=== PATIENT | male | born 1980 | race Caucasian/White ===

== ENCOUNTER 2019-12-05 17:42 | Emergency (ER) | payer OTHER, SELFPAY ==
--- NOTE | ~2019-12-05 | XR_ITS ---
EXAMINATION: XR chest 2V 12/05/2019 19:50 INDICATION: Chest and left arm pain PROCEDURE: 2 view chest COMPARISON: 06/30/2015 FINDINGS: The lungs are clear. The cardiomediastinal silhouette is within normal limits. There are no pleural effusions. There is no pneumothorax suspected. IMPRESSION: 1: NO ACUTE CARDIOPULMONARY DISEASE. Reviewed, dictated and finalized at location A.
--- NOTE | 2019-12-05 18:06 | ECG_ITS ---
Measurements Intervals [place] Rate: 69 P: 22 IN: 140 QRS: 34 QRSD: 91 T: 43 QT: 349 QTc: 376 Interpretive Statements SINUS RHYTHM CANNOT RULE OUT SEPTAL INFARCT, AGE INDETERMINATE BASELINE WANDER- V1-V2 ABNORMAL ECG Electronically Signed On 12-05-2019 19:11:42 CDT by Mahendra Vang D.O.
[2019-12-05 18:08] VITALS: BP 176/113; PULSE 69; RESP 18; TEMP 36.3; O2SAT 99
[2019-12-05 18:16] LABS: Basophils Percent Auto 0.5 % (0.2-1.2); Eosinophils Absolute Auto 0.2 K/mm3 (0-0.3); Eosinophils Percent Auto 2.3 % (0-4.4); Hematocrit 44.8 % (42.0-52.0); Hemoglobin 16.2 g/dL (14.0-18.0); Immature Granulocyte Absolute 0.02 K/mm3 (0.00-0.031); Immature Granulocyte Percent A 0.2 % (0-0.5); Lymphocytes Absolute Auto 2.09 K/mm3 (0.9-3.2); Lymphocytes Percent Auto 25.1 % (18.3-44.2); Mean Corpuscular HGB Conc 36.2 g/dl (32-36); Mean Corpuscular Hemoglobin 31.3 pg (26-34); Mean Corpuscular Volume 86.7 fl (80-100); Mean Platelet Volume 8.8 fl (7.4-10.4); Monocytes Absolute Auto 0.6 K/mm3 (0.1-0.6); Monocytes Percent Auto 7.7 % (2.6-8.5); Neutrophils Absolute Auto 5.3 K/mm3 (1.3-6.7); Neutrophils Percent Auto 64.2 % (45.5-73.1); Platelet Count Result 207 k/mm3 (150-375); Red Blood Count 5.17 M/mm3 (4.6-6.20); Red Cell Distribution Width 11.5 % (11.5-14.5); White Blood Count 8.3 K/mm3 (4.5-10.0)
[2019-12-05 18:25] LABS: Prothrombin Time 13.2 Seconds (11.1-14.7)
[2019-12-05 18:26] LABS: Partial Thromboplastin Time 26.9 SECONDS (22.3-36.8)
[2019-12-05 18:27] LABS: Anion Gap 6 mmol/L (8-16); Blood Urea Nitrogen 18 mg/dL (9-20); Calcium 9.8 mg/dL (8.4-10.2); Carbon Dioxide 32 mmol/L (22-30); Chloride 103 mmol/L (98-107); Estimated CRCL calculation 104 ml/min; Estimated Glomerular Filt Rate > 60; Glucose 98 mg/dL (75-110); Potassium 4.1 mmol/L (3.4-5.0); Sodium 141 mmol/L (137-145)
[2019-12-05 18:39] LABS: Troponin I < 0.012 ng/mL (0.000-0.034)
[2019-12-05 20:12] VITALS: BP 189/122; PULSE 66; RESP 18; O2SAT 99
--- NOTE | 2019-12-05 20:47 | ED.GENADULT ---
HPI - General Adult General Chief complaint: Recheck/Abnormal Lab/Rx Stated complaint: abnormal ekg Time Seen by Provider: 12/05/19 20:25 History of Present Illness HPI narrative: Patient is a 39-year-old male who was sent by his primary care physician for further evaluation. Patient has history of hypertension for which she has not been taking his medications. He reports that over the last couple weeks he has been having some achiness in his left arm. It will last for about an hour. No aggravating or alleviating factors that he is noted. No chest pain or chest pressure or shortness of breath. Stable at PCPs office patient had elevated blood pressures that given the left-sided arm pain were concerning. Patient has no previous cardiac history. No drug use. Related Data Allergies Allergy/AdvReac Type Severity Reaction Status Date / Time No Known Allergies Allergy Unverified 05/02/17 08:42 Review of Systems Review of Systems: All systems reviewed & are unremarkable except as noted in HPI and below Constitutional: Constitutional: Denies chills, Denies fever(s) and Denies weakness ENT: Denies nasal congestion and Denies sore throat Cardiovascular: Cardiovascular: Denies chest pain and Denies radiating jaw, neck or arm pain Respiratory: Respiratory: Denies cough and Denies dyspnea Gastrointestinal: Gastrointestinal: Denies abdominal pain, Reports nausea (Occurs when laying down is associated with sweating and dizziness.) and Denies vomiting Neurologic: Reports dizziness, Reports headache(s) (Chronic headaches related to migraine.), Denies focal weakness and Denies numbness PMFSH Past Medical History Medical History (Updated 12/05/19 @ 20:56 by Uri Bermudez MD) Hypertension Migraines Surgical History Surgical History (Updated 12/05/19 @ 20:48 by Uri Bermudez MD) No history of previous surgery Family History Family History (Updated 07/09/15 @ 08:58 by DOCTOR UNKNOWN) Father Hypertension Acute myocardial infarction Social History Social History (Updated 12/05/19 @ 20:49 by Uri Bermudez MD) Smoking status: Former smoker Exam Narrative: Exam Narrative: GENERAL: Well-appearing, well-nourished, and in no acute distress. HEAD: Normocephalic, atraumatic. ENT: Mucous membranes moist. CHEST: Clear to auscultation. No respiratory distress. HEART: Regular rate and rhythm. Normal peripheral pulses. ABDOMEN: Soft, nontender, nondistended. EXTREMITIES: Normal range of motion. No extremity tenderness. No edema. NEURO: Alert and oriented x3. PSYCH: Normal mood and affect. Course Course Emergency Course: Unremarkable evaluation. Will start on lisinopril patient has follow-up in 3 days with his primary care physician. Vital Signs Vital signs: Vital Signs Temperature 97.4 F L 12/05/19 18:08 Pulse Rate 69 12/05/19 18:08 Respiratory Rate 18 12/05/19 18:08 Blood Pressure 176/113 H 12/05/19 18:08 Pulse Oximetry 99 12/05/19 18:08 Temperature 97.4 F L 12/05/19 18:08 Pulse Rate 66 12/05/19 20:12 Respiratory Rate 18 12/05/19 20:12 Blood Pressure 189/122 H 12/05/19 20:12 Pulse Oximetry 99 12/05/19 20:12 Medical Decision Making Vital Signs Vital Signs: Vital Signs Temperature 97.4 F L 12/05/19 18:08 Pulse Rate 69 12/05/19 18:08 Respiratory Rate 18 12/05/19 18:08 Blood Pressure 176/113 H 12/05/19 18:08 Pulse Oximetry 99 12/05/19 18:08 Temperature 97.4 F L 12/05/19 18:08 Pulse Rate 66 12/05/19 20:12 Respiratory Rate 18 12/05/19 20:12 Blood Pressure 189/122 H 12/05/19 20:12 Pulse Oximetry 99 12/05/19 20:12 Lab Data Result diagrams: 12/05/19 18:09 12/05/19 18:09 Labs: Lab Results 12/05/19 12/05/19 12/05/19 Range/Units 18:09 18:09 18:09 WBC 8.3 (4.5-10.0) K/mm3 RBC 5.17 (4.6-6.20) M/mm3 Hgb 16.2 (14.0-18.0) g/dL Hct 44.8 (42.0-52.0) % MCV 86.7 (80-100) f
[2019-12-05 21:09] VITALS: BP 152/88; PULSE 82; RESP 18; O2SAT 99
== END 2019-12-05 21:11 | disposition home or self-care (01) ==
PROVIDERS: Emergency Medicine; Emergency Provider Emergency Medicine; PCP Emergency Medicine
DX: I10 Essential (primary) hypertension (principal); R94.31 Abnormal electrocardiogram [ECG] [EKG]
CPT/HCPCS: 36415; 71046; 80048; 84484; 85025; 85610; 85730; 93005; 99284

== ENCOUNTER 2020-05-04 11:08 | Emergency (ER) | payer OTHER, SELFPAY ==
--- NOTE | ~2020-05-04 | XR_ITS ---
EXAMINATION: XR forearm RT 2V EXAM DATE: 05/04/2020 11:32 INDICATION: PAIN dist Rt forearm x 2 days; no injury. TECHNIQUE: Right forearm frontal and lateral projections obtained and reviewed. There is no prior st udy for comparison. FINDINGS: There are no acute right forearm fractures or dislocations identified. There is no subcuta neous gas. The soft tissue is unremarkable. There are no radiopaque foreign bodies. IMPRESSION: 1. Unremarkable right forearm exam. Reviewed, dictated and finalized at location A.
[2020-05-04 11:18] VITALS: BP 151/100; PULSE 60; RESP 12; TEMP 36.7; O2SAT 100
--- NOTE | 2020-05-04 11:19 | ED.GENADULT ---
HPI - General Adult General Chief complaint: Extremity Injury, Upper Stated complaint: rt hand pain Time Seen by Provider: 05/04/20 11:19 Source: patient Mode of arrival: ambulatory Limitations: no limitations History of Present Illness HPI narrative: 39-year-old male patient presents to the [facility] with complaints of right arm pain for the past 2 days. Patient states that couple days ago he did put in some dong and was using some tools to try and scrape of the old dong. Patient states he thinks it might have been a pulled muscle but is also concerned about a fracture. Patient denies any specific trauma 2 days ago. Patient denies any numbness or tingling to the fingertips. Patient denies taking anything for pain since it started hurting. Related Data Home Medications Medication Instructions Recorded Confirmed amlodipine 05/04/20 aspirin [Adult Aspirin EC Low 05/04/20 Strength] metoprolol tartrate 05/04/20 Allergies Allergy/AdvReac Type Severity Reaction Status Date / Time No Known Allergies Allergy Unverified 05/02/17 08:42 Review of Systems Review of Systems: Narrative: CONSTITUTIONAL: Denies fever, chills, or sweats. EYES: Denies visual changes, redness, or discharge. ENT: Denies rhinorrhea, congestion, sore throat, or otalgia. CARDIOVASCULAR: Denies chest pain, palpitations, or edema. RESPIRATORY: Denies cough or dyspnea. GASTROINTESTINAL: Denies abdominal pain, nausea, vomiting, or diarrhea. GENITOURINARY: Denies dysuria or hematuria. SKIN: Denies rash or itching. MUSCULOSKELETAL: Denies back pain, joint pain, or myalgia. Positive right wrist/forearm pain NEUROLOGIC: Denies headache, numbness, or weakness. PSYCHIATRIC: Denies anxiety or depression. FOR[facility]LY [facility] Past Medical History Medical History Hypertension Migraines Surgical History Surgical History No history of previous surgery Family History Family History Father Hypertension Acute myocardial infarction Social History Social History Smoking status: Former smoker Comments At the time of my signature I agree with nursing past medical history, surgical, social, and family history. There is no relevant family history pertinent to the presenting complaint. Exam Narrative: Exam Narrative: GENERAL: Well-appearing, well-nourished, and in no acute distress. HEAD: Normocephalic, atraumatic. EYES: PERRLA and EOMI. ENT: Nares clear, no rhinorrhea or epistaxis. Mucous membranes moist. NECK: Supple. No lymphadenopathy CHEST: Clear to auscultation. No respiratory distress. HEART: Regular rate and rhythm. No murmur heard. Normal peripheral pulses. ABDOMEN: Soft, nontender, nondistended, normal active bowel sounds. EXTREMITIES: Patient is right-hand dominant. The R wrist is without obvious asymmetry or deformity when compared to the L wrist. No surface trauma, open wounds, swelling, or obvious deformity. Patient does have an obvious swelling noted to the proximal end of the right forearm with some muscle tenderness and what appears to be a pulled muscle noted. No overlying erythema or warmth. No bony crepitus or focal area of TTP. No scaphoid fullness or tenderness to direct palpation or axial load. Normal flex/extension, ulnar/radial deviation. Motor/sensory function of ulnar, radial, median nerves intact. Ulnar and radial pulses intact. Negaitve Phalen's/Tinel's sign. Negative Bridgette test. SKIN: Warm, dry, no rash. NEURO: No focal deficits. Alert and oriented x3. Course Reevaluation(s) Reevaluation #1: Reevaluated patient after x-ray resulted. Notified him that there is no fractures identified in the x-rays. Discussed with him this is most likely a pulled muscle or sprain of the wrist. Discussed with him we will go
== END 2020-05-04 11:49 | disposition home or self-care (01) ==
PROVIDERS: Emergency Provider Nurse Practitioner Family; PCP Emergency Medicine
DX: S63.591A Other specified sprain of right wrist, initial encounter (principal); X58.XXXA Exposure to other specified factors, initial encounter; I10 Essential (primary) hypertension
CPT/HCPCS: 73090; 99213; G0463

== ENCOUNTER 2022-10-05 23:17 | Emergency (ER) | payer OTHER, SELFPAY ==
[2022-10-05 23:26] VITALS: BP 138/90; PULSE 74; RESP 16; TEMP 36.2; O2SAT 100
[2022-10-06 01:18] VITALS: BP 140/90; PULSE 78; RESP 16; TEMP 36.6; O2SAT 100
== END 2022-10-06 02:37 | disposition left against medical advice (07) ==
LOC: ANHED 10-06 02:37
PROVIDERS: PCP Emergency Medicine
DX: R10.9 Unspecified abdominal pain (principal)
CPT/HCPCS: 99199

== ENCOUNTER 2023-10-22 20:09 | Observation (INO) | payer OTHER, SELFPAY ==
[2023-10-22] VITALS (7 sets, daily range): BP systolic 112–152; BP diastolic 63–95; PULSE 67–80; RESP 12–20; TEMP 36.6–36.7; O2SAT 95–100; BMI 27.6
--- NOTE | ~2023-10-22 | XR_ITS ---
EXAMINATION: XR chest 2V Exam Date/Time: 10/22/2023 20:25 CDT HISTORY: chest pain Comparison: 12/05/2019. RESULT: Lines, tubes, and devices: None. Lungs and pleura: Clear. Cardiomediastinal silhouette: Stable. Other: No acute osseous or upper abdominal finding. IMPRESSION: No acute cardiopulmonary process. Reviewed, dictated and finalized at location K.
--- NOTE | 2023-10-22 20:11 | ECG_ITS ---
Test Date: 2023-10-22 23:20:33 Measurements Intervals [place] Rate: 66 P: 14 MN: 158 QRS: 2 QRSD: 92 T: -17 QT: 376 QTc: 394 Interpretive Statements SINUS RHYTHM MODERATE T-WAVE ABNORMALITY, CONSIDER ANTEROLAT/INF ISCHEMIA ABNORMAL ECG No previous ECG available for comparison Electronically Signed On 10-23-2023 05:46:40 CDT by Mahendra Vang D.O.
[2023-10-22 20:29] LABS: Basophils Absolute Auto 0.1 K/mm3 (0.0-0.1); Basophils Percent Auto 0.7 % (0.2-1.2); Eosinophils Absolute Auto 0.3 K/mm3 (0-0.3); Eosinophils Percent Auto 3.3 % (0-4.4); Hematocrit 43.5 % (42.0-52.0); Hemoglobin 15.7 g/dL (14.0-18.0); Immature Granulocyte Absolute 0.02 K/mm3 (0.00-0.031); Immature Granulocyte Percent A 0.3 % (0-0.5); Lymphocytes Absolute Auto 2.06 K/mm3 (0.9-3.2); Lymphocytes Percent Auto 26.9 % (18.3-44.2); Mean Corpuscular HGB Conc 36.1 g/dl (32-36); Mean Corpuscular Hemoglobin 31.3 pg (26-34); Mean Corpuscular Volume 86.7 fl (80-100); Mean Platelet Volume 8.7 fl (7.4-10.4); Monocytes Absolute Auto 0.6 K/mm3 (0.1-0.6); Monocytes Percent Auto 8.4 % (2.6-8.5); Neutrophils Absolute Auto 4.6 K/mm3 (1.3-6.7); Neutrophils Percent Auto 60.4 % (45.5-73.1); Platelet Count Result 225 k/mm3 (150-375); Red Blood Count 5.02 M/mm3 (4.6-6.20); Red Cell Distribution Width 11.5 % (11.5-14.5); White Blood Count 7.7 K/mm3 (4.5-10.0)
[2023-10-22 20:39] LABS: Prothrombin Time 13.7 Seconds (11.1-14.7)
[2023-10-22 20:40] LABS: Partial Thromboplastin Time 26.5 Seconds (22.3-36.8)
[2023-10-22 20:41] LABS: Alanine Aminotransferase 20 U/L (6-50); Albumin Level 4.7 g/dL (3.5-5.1); Alkaline Phosphatase 74 U/L (38-126); Anion Gap 10 mmol/L (4-12); Aspartate Amino Transferase 28 U/L (17-59); Bilirubin,Total 0.5 mg/dL (0.2-1.3); Blood Urea Nitrogen 17 mg/dL (9-20); Calcium 9.1 mg/dL (8.4-10.2); Carbon Dioxide 29 mmol/L (22-30); Chloride 95 mmol/L (98-107); Estimated CRCL calculation 101 ml/min; Estimated Glomerular Filt Rate > 60; Glucose 102 mg/dL (65-110); Lipase 217 U/L (23-300); Potassium 4.3 mmol/L (3.4-5.0); Sodium 134 mmol/L (137-145)
[2023-10-22 20:58] LABS: Troponin I 0.322 ng/mL (0.000-0.034)
[2023-10-22] MEDS: ASPIRIN 81 MG CHEWABLE TABLET 324 MG PO (21:14)
--- NOTE | 2023-10-22 21:32 | ED.CHESTPAIN ---
HPI - Chest Pain General Chief Complaint: Chest Pain Stated Complaint: chest pain Time Seen by Provider: 10/22/23 21:07 Source: patient Mode of arrival: ambulatory Limitations: no limitations History of Present Illness HPI narrative: This is a 42 year old male that presents to the ER for an episode of chest pain today. Reports he was playing with his kids in the backyard. He walked up to the porch and started to develop a squeezing mid chest pain. This radiated to his right arm. He felt short of breath. Symptoms had resolved prior to arrival. Reports he had a similar experience a couple of days ago. He does not have any known history of CAD, but reports family history. Related Data Home Medications Medication Instructions Recorded Confirmed amlodipine 10 mg tablet 05/04/20 aspirin 81 mg tablet,delayed 05/04/20 release metoprolol tartrate 100 mg tablet 05/04/20 Allergies Allergy/AdvReac Type Severity Reaction Status Date / Time No Known Allergies Allergy Verified 10/05/22 23:22 Review of Systems Review of Systems: CONSTITUTIONAL: Denies fever CARDIOVASCULAR: Reports chest pain. Denies edema. RESPIRATORY: Reports dyspnea. All systems reviewed & are unremarkable except as noted in HPI and below PMFSH Past Medical History Medical History Hypertension Migraines Surgical History Surgical History No history of previous surgery Family History Family History Father Hypertension Acute myocardial infarction Social History Social History Smoking status: Former smoker Exam Narrative: GENERAL: Well-appearing, well-nourished, and in no acute distress. HEAD: Normocephalic, atraumatic. EYES: EOMI. CHEST: Clear to auscultation. No respiratory distress. No wheezes rales or rhonchi HEART: Regular rate and rhythm. No murmur heard. Normal peripheral pulses. EXTREMITIES: Normal range of motion. No edema. SKIN: Warm, dry, no rash. NEURO: No focal deficits. Alert and oriented x3. PSYCH: Normal mood and affect Course Course Emergency Course: patient updated on his workup and recommendations from Cardiology Consultations Consultation #1: spoke with Dr. Vang about patient and workup. Recommend starting heparin. Likely cardiac catheterization tomorrow Date: 10/22/23 Consultation #2: Spoke with Dr. Watson about patient and workup who accepts admission Date: 10/22/23 Vital Signs Vital signs: Vital Signs Temperature 98.0 F 10/22/23 20:19 Pulse Rate 80 10/22/23 20:19 Respiratory Rate 16 10/22/23 20:19 Blood Pressure 136/94 H 10/22/23 20:19 Pulse Oximetry 100 10/22/23 20:19 Temperature 98.0 F 10/22/23 20:19 Pulse Rate 67 10/22/23 22:01 Respiratory Rate 15 10/22/23 22:01 Blood Pressure 112/63 10/22/23 22:01 Pulse Oximetry 99 10/22/23 22:01 Oxygen Delivery Room Air 10/22/23 21:05 MDM - Chest Pain MDM Narrative Medical decision making narrative: Patient presents to the emergency department for an episode of chest pain today. Pain had largely resolved upon arrival. His vitals are stable. EKG with T-wave inversions laterally. His baseline troponin is elevated at .322. D dimer is negative. Chest x-ray is normal. Patient reporting a similar episode a couple of days prior. He does not have known history of CAD, but does report family history. spoke with Dr. Vang about patient and workup. Recommend starting heparin. Likely cardiac catheterization tomorrow. patient updated on his workup and recommendations from Cardiology. spoke with Dr. Watson about patient and workup who accepts admission Differential Diagnosis Differential diagnosis: Likely stable angina, unstable angina pectoris, atypical chest pain, st elevation myocar
[2023-10-22 21:38] LABS: D Dimer 0.28 ug/mL (<0.48)
[2023-10-22] MEDS: HEPARIN SODIUM 5,000 UNITS/ML VIAL 4000 UNITS IV PUSH (22:07)
[2023-10-22] MEDS: HEPARIN SOD/D5W 100 UNITS/ML 25,000 UNITS/250 ML BAG 10 UNITS IV CONT (22:08)
--- NOTE | 2023-10-22 23:14 | ADMGEN ---
This patient, Femi Squires, was admitted to IMU Room 212-01. Patient/family oriented to hospital policies and general routines including ID bracelet, bed and alarms, visiting hours, pain management, procedures, bathroom and other care routines, personal items, smoking policy, room service/diet, and visiting hours. Information on how to activate the Rapid Response Team has been discussed. Patient/Family are encouraged to report perceived risks to care and to ask questions if they do not understand what they are told or what they should do.
[2023-10-22 23:35] LABS: Cholesterol 170 mg/dL (0-200); HDL Direct 40 mg/dL; Triglycerides 116 mg/dL (<150)
[2023-10-22 23:46] LABS: LDL Cholesterol Direct 108 mg/dL
[2023-10-22 23:58] LABS: Troponin I 0.334 ng/mL (0.000-0.034)
[2023-10-23] VITALS (32 sets, daily range): BP systolic 130–156; BP diastolic 87–116; PULSE 53–86; RESP 12–22; TEMP 36.3–36.8; O2SAT 98–100
--- NOTE | 2023-10-23 | ECHO_ITS ---
Patient Info Name: Femi Squires Age: 42 years : 1980 Gender: Male Ht: 71 in Wt: 197 lbs BSA: 2.13 m2 HR: 67 bpm BP: 139 / 91 mmHg Heart Rhythm: Sinus Rhythm Technical Quality: Good Exam Date: 10/23/2023 12:53 PM Exam Location: Echo Lab Patient Status: Outpatient Admit Date: 10/22/2023 Staff Ordering Physician: Mahendra Vang DO Livestock Broker: Malia Day RDCS Attending Provider: Kika Watson MD Referring Physician: Taj ADAMS; Exam Type: CA echo dop color flow w con Study Info Indications - NSTEMI Complete two-dimensional, color flow and Doppler transthoracic echocardiogram is performed with contrast to opacify the left ventricle and to improve the deliniation of the left ventricle endocardial borders. Contrast/Agitated Saline Contrast/Ag. Saline: Definity Amount: 2.00 ml Administered By: Malia Day RDCS Existing IV Access: Yes IV Access Condition: patent with no signs of infiltration Summary 1. Left ventricular chamber dimension is normal. 2. Left ventricular systolic function is normal, estimated at 60-65%. 3. The left ventricular diastolic function is normal. 4. E/e' 6 is not elevated. 5. No pulmonary hypertension, estimated pulmonary arterial systolic pressure is 24 mmHg. Left Ventricle E/e' 6 is not elevated. Left ventricular chamber dimension is normal. Left ventricular systolic function is normal, estimated at 60-65%. The left ventricular diastolic function is normal. Right Ventricle Right ventricular systolic function is normal and with normal TAPSE 2. 5 cm. Right ventricular chamber dimension is normal. Left Atria Left atrial chamber dimension is normal. Right Atria Right atrial chamber dimension is normal. Aortic Valve The aortic valve is trileaflet. There is no aortic valve stenosis. There is no aortic valve regurgitation. Pulmonic Valve There is no pulmonic regurgitation. Mitral Valve There is no mitral valve stenosis. There is no mitral valve regurgitation. Tricuspid Valve There is no tricuspid valve regurgitation. No pulmonary hypertension, estimated pulmonary arterial systolic pressure is 24 mmHg. Pericardium/Pleural There is no pericardial effusion. Inferior Vena Cava Normal inferior vena cava with >50% collapse upon inspiration consistent with normal right atrial pressure, 5 mmHg. Aorta The aortic root size at the sinus of Valsalva is normal. Left Ventricular Outflow Tract Name Value Normal LVOT 2D LVOT Diameter 2.19 cm LVOT Doppler LVOT Peak Gradient 2 mmHg LVOT Mean Gradient 1 mmHg LVOT VTI 14.09 cm LVOT VTI/AV VTI Ratio 0.74 LVOT Stroke Volume 53.17 ml LVOT CO 3.22 l/min LVOT CI 1.51 L/min/m2 Pulmonic Valve Name Value Normal RVOT Doppler
--- NOTE | 2023-10-23 02:18 | ECG_ITS ---
Test Date: 2023-10-23 02:40:58 Measurements Intervals [place] Rate: 62 P: 28 GA: 157 QRS: 25 QRSD: 101 T: 29 QT: 387 QTc: 393 Interpretive Statements SINUS RHYTHM LOW QRS VOLTAGE IN LIMB LEADS T WAVE ABNORMALITYIN ANTERIOR LEADS- CONSIDER ISCHEMIA ABNORMAL ECG Compared to ECG 10/22/2023 23:20:33 NO SIGNIFICANT CHANGE Electronically Signed On 10-23-2023 05:52:51 CDT by Mahendra Vang D.O.
--- NOTE | 2023-10-23 02:49 | PM.IMHP ---
H&P: HPI History of Present Illness Date/Time: 10/23/23 02:49 Chief Complaint: Chest pain Narrative: Mr. Squires is a 42-year-old male with a past medical history hypertension, marijuana use for anxiety per the patient's report, who presents with chest pain lasting 15 minutes prior to admission. He reports it as feeling tight and on the right side of his chest, worse when he lays down on his right side. He had this pain a few days prior which was transient as well. Was not worse on exertion. Denies shortness of breath, denies cough. his father of a heart attack in his 60s, grandfather had heart disease as well. Patient quit tobacco and alcohol use in 2015. Does not use illicit drugs. He lives with his . ER vitals included temperature 97.9? F, pulse rate 68, respiratory rate 18, 95% O2 saturation on room air, blood pressure 152/95. lipid panel obtained in the ER. Troponin 0.32 to than 0.334. Repeat pending for 2:00 a.m.. EKG did not demonstrate ST changes but T-wave inversions in lead V4 and V5. Chest x-ray did not reveal any Acute process. He was given aspirin 324 mg p.o. x1, started on heparin GTT with bolus. Cardiolog Dr. Vang Contacted from ER. Review of Systems Review of Systems: All systems reviewed & are unremarkable except as noted in HPI and below ( Subjective) [facility] Past Medical History Medical History (Updated 10/23/23 @ 02:53 by Kika Watson MD) Hypertension Migraines Surgical History Surgical History No history of previous surgery Family History Family History Father Hypertension Acute myocardial infarction Social History Social History Smoking status: Never smoker Alcohol intake: never Substance use: current Substance use type: marijuana Last use: 10/22/23 Do You Feel Safe in your Home?: Yes Lack of Transportation: No Lack of Food: Never True Current Housing: I Have Housing Concerned About Future Housing: No Difficulty Paying Gas/Electric Bills: No Difficulty Paying for Meds: No Currently Unemployed: YES Education: High School Diploma/GED Difficulty w/ Childcare or Family Care: No Spiritual care concerns: No Meds Home Medications and Allergies Home Medications Medication Instructions Recorded Confirmed Type amlodipine 10 mg tablet 10 mg PO DAILY 05/04/20 10/22/23 History aspirin 81 mg tablet,delayed 81 mg PO DAILY 05/04/20 10/22/23 History release metoprolol tartrate 100 mg tablet 100 mg PO BID 05/04/20 10/22/23 History lisinopril 30 mg tablet 30 mg PO DAILY 10/22/23 10/22/23 History Allergies Allergy/AdvReac Type Severity Reaction Status Date / Time No Known Allergies Allergy Verified 10/05/22 23:22 Vital Signs Vital Signs - 24 hr 10/22/23 20:19 10/22/23 21:05 10/22/23 21:11 Temperature 98.0 F Pulse Rate 80 73 Respiratory Rate 16 20 Blood Pressure 136/94 H 134/94 H Pulse Oximetry 100 98 99 Oxygen Delivery Room Air 10/22/23 21:47 10/22/23 22:01 10/22/23 23:25 Temperature 97.9 F Pulse Rate 70 67 68 Respiratory Rate 12 15 18 Blood Pressure 121/85 112/63 152/95 H Pulse Oximetry 99 99 95 Oxygen Delivery 10/22/23 23:30 10/23/23 00:00 10/23/23 02:00 Temperature Pulse Rate 68 63 74 Respiratory Rate 18 Blood Pressure Pulse Oximetry 95 Oxygen Delivery Room Air Exam Const: General: comfortable and no acute distress Eyes: Pupils: Equal, round and reactive pupils present Neck: Neck: supple Resp: Effort & Inspection: normal respiratory effort Auscultation: clear to auscultation bilaterally Cardio: Rate: regular rate Rhythm: regular rhythm GI: GI Palp: Yes Soft to palpation and No Tenderness to palpation present (GI) Extrem: General: no edema H&P: Results Labs Labs: Short CBC 10/22/23 R
[2023-10-23 03:10] LABS: Partial Thromboplastin Time 58.6 Seconds (22.3-36.8)
[2023-10-23 03:33] LABS: Troponin I 0.401 ng/mL (0.000-0.034)
[2023-10-23 03:35] LABS: Basophils Percent Auto 0.4 % (0.2-1.2); Eosinophils Absolute Auto 0.3 K/mm3 (0-0.3); Eosinophils Percent Auto 3.7 % (0-4.4); Hematocrit 42.1 % (42.0-52.0); Immature Granulocyte Absolute 0.02 K/mm3 (0.00-0.031); Immature Granulocyte Percent A 0.3 % (0-0.5); Lymphocytes Absolute Auto 2.44 K/mm3 (0.9-3.2); Lymphocytes Percent Auto 33.7 % (18.3-44.2); Mean Corpuscular HGB Conc 35.6 g/dl (32-36); Mean Corpuscular Hemoglobin 30.9 pg (26-34); Mean Corpuscular Volume 86.8 fl (80-100); Mean Platelet Volume 9.3 fl (7.4-10.4); Monocytes Absolute Auto 0.5 K/mm3 (0.1-0.6); Monocytes Percent Auto 7.3 % (2.6-8.5); Neutrophils Percent Auto 54.6 % (45.5-73.1); Platelet Count Result 197 k/mm3 (150-375); Red Blood Count 4.85 M/mm3 (4.6-6.20); Red Cell Distribution Width 11.5 % (11.5-14.5); White Blood Count 7.3 K/mm3 (4.5-10.0)
[2023-10-23] MEDS: HEPARIN SODIUM 5,000 UNITS/ML VIAL 3500 UNITS IV PUSH (04:07)
[2023-10-23 07:41] LABS: Troponin I 0.339 ng/mL (0.000-0.034)
--- NOTE | 2023-10-23 07:47 | PM.CNCAR ---
Assessment and Plan Assessment and plan (1) Non-ST elevation [place] (NSTEMI): Code(s): I21.4 - Non-ST elevation (NSTEMI) myocardial infarction Status: Acute Assessment and Plan: Chest pain free now. Troponin trending up to 0.4. EKG shows T wave inversions. On heparin drip, aspirin, Atorvastatin, Metoprolol. Obtain echo. Risks/benefits/alternative to LHC discuss with patient and he is agreeable for it. Consult HCG for procedure. Keep NPO. (2) Hypertension: Code(s): I10 - Essential (primary) hypertension Status: Acute History of Present Illness History of Present Illness Consult date/time: 10/23/23 07:47 Reason For Visit: NSTEMI Narrative: 42 yr old man presents to ED with chest pain. He has a history of hypertension and family history of CAD in his father and grandfather. Reports mid chest pain radiating to right arm yesterday at rest with tingling in his right fingers lasting 15 minutes. A few days prior to that he had similar chest pains at rest. Pain resolved. He can walk a mile without any problems. Denies sob, orthopnea, PND, edema, dizziness, palpitations. Review of Systems Review of Systems: All systems reviewed & are unremarkable except as noted in HPI and below Constitutional: Constitutional: Reports as per HPI, Denies chills and Denies fever(s) Cardiovascular: Cardiovascular: Reports as per HPI, Reports chest pain and Denies irregular heart rhythm Respiratory: Respiratory: Reports as per HPI and Denies dyspnea Gastrointestinal: Gastrointestinal: Reports as per HPI and Denies abdominal pain Genitourinary: Genitourinary: Reports as per HPI and Denies dysuria Musculoskeletal: Musculoskeletal: Reports as per HPI Neurologic: Reports as per HPI, Denies dizziness and Denies syncope [facility] Past Medical History Medical History (Updated 10/23/23 @ 02:53 by Kika Watson MD) Hypertension Migraines Surgical History Surgical History No history of previous surgery Family History Family History Father Hypertension Acute myocardial infarction Social History Social History Smoking status: Never smoker Alcohol intake: never Substance use: current Substance use type: marijuana Last use: 10/22/23 Do You Feel Safe in your Home?: Yes Lack of Transportation: No Lack of Food: Never True Current Housing: I Have Housing Concerned About Future Housing: No Difficulty Paying Gas/Electric Bills: No Difficulty Paying for Meds: No Currently Unemployed: YES Education: High School Diploma/GED Difficulty w/ Childcare or Family Care: No Spiritual care concerns: No Meds Home Medications and Allergies Home Medications Medication Instructions Recorded Confirmed Type amlodipine 10 mg tablet 10 mg PO DAILY 05/04/20 10/22/23 History aspirin 81 mg tablet,delayed 81 mg PO DAILY 05/04/20 10/22/23 History release metoprolol tartrate 100 mg tablet 100 mg PO BID 05/04/20 10/22/23 History lisinopril 30 mg tablet 30 mg PO DAILY 10/22/23 10/22/23 History Allergies Allergy/AdvReac Type Severity Reaction Status Date / Time No Known Allergies Allergy Verified 10/05/22 23:22 Vital Signs Vital Signs - 24 hr 10/22/23 20:19 10/22/23 21:05 10/22/23 21:11 Temperature 98.0 F Pulse Rate 80 73 Respiratory Rate 16 20 Blood Pressure 136/94 H 134/94 H Pulse Oximetry 100 98 99 Oxygen Delivery Room Air 10/22/23 21:47 10/22/23 22:01 10/22/23 23:25 Temperature 97.9 F Pulse Rate 70 67 68 Respiratory Rate 12 15 18 Blood Pressure 121/85 112/63 152/95 H Pulse Oximetry 99 99 95 Oxygen Delivery 10/22/23 23:30 10/23/23 00:00 10/23/23 02:00 Temperature Pulse Rate 68 63 74 Respiratory Rate 18 Blood Pressure Pulse Oximetry 95 Oxygen Delivery Room Air 10/23/23 03
--- NOTE | 2023-10-23 09:25 | PM.CNCAR ---
Assessment and Plan Assessment and plan (1) Non-ST elevation [place] (NSTEMI): Code(s): I21.4 - Non-ST elevation (NSTEMI) myocardial infarction Status: Acute Assessment and Plan: 42 yo man with HTN and family history of cardiac conditions presented with chest pain whose clinical presentation is consistent with NSTEMI here for [facility] Plan [facility] History of Present Illness History of Present Illness Consult date/time: 10/23/23 09:25 Requesting physician: Mahendra Vang DO Consult reason: chest pain Reason For Visit: NSTEMI Narrative: 42 yo man with HTN and family history of cardiac conditions presented with chest pain whose clinical presentation is consistent with NSTEMI here for [facility] Review of Systems Review of Systems: All systems reviewed & are unremarkable except as noted in HPI and below PMFSH Past Medical History Medical History Hypertension Migraines Surgical History Surgical History No history of previous surgery Family History Family History Father Hypertension Acute myocardial infarction Social History Social History Smoking status: Never smoker Alcohol intake: never Substance use: current Substance use type: marijuana Last use: 10/22/23 Do You Feel Safe in your Home?: Yes Lack of Transportation: No Lack of Food: Never True Current Housing: I Have Housing Concerned About Future Housing: No Difficulty Paying Gas/Electric Bills: No Difficulty Paying for Meds: No Currently Unemployed: YES Education: High School Diploma/GED Difficulty w/ Childcare or Family Care: No Spiritual care concerns: No Meds Home Medications and Allergies Home Medications Medication Instructions Recorded Confirmed Type amlodipine 10 mg tablet 10 mg PO DAILY 05/04/20 10/22/23 History aspirin 81 mg tablet,delayed 81 mg PO DAILY 05/04/20 10/22/23 History release metoprolol tartrate 100 mg tablet 100 mg PO BID 05/04/20 10/22/23 History lisinopril 30 mg tablet 30 mg PO DAILY 10/22/23 10/22/23 History Allergies Allergy/AdvReac Type Severity Reaction Status Date / Time No Known Allergies Allergy Verified 10/05/22 23:22 Vital Signs Vital Signs - 24 hr 10/22/23 20:19 10/22/23 21:05 10/22/23 21:11 Temperature 36.7 C Pulse Rate 80 73 Respiratory Rate 16 20 Blood Pressure 136/94 H 134/94 H Pulse Oximetry 100 98 99 Oxygen Delivery Room Air Fraction of Inspired Oxygen 10/22/23 21:47 10/22/23 22:01 10/22/23 23:25 Temperature 36.6 C Pulse Rate 70 67 68 Respiratory Rate 12 15 18 Blood Pressure 121/85 112/63 152/95 H Pulse Oximetry 99 99 95 Oxygen Delivery Fraction of Inspired Oxygen 10/22/23 23:30 10/23/23 00:00 10/23/23 02:00 Temperature Pulse Rate 68 63 74 Respiratory Rate 18 Blood Pressure Pulse Oximetry 95 Oxygen Delivery Room Air Fraction of Inspired Oxygen 10/23/23 03:23 10/23/23 04:00 10/23/23 04:00 Temperature 36.6 C Pulse Rate 64 64 64 Respiratory Rate 18 18 Blood Pressure 139/91 H Pulse Oximetry 99 99 Oxygen Delivery Room Air Fraction of Inspired Oxygen 10/23/23 06:00 10/23/23 08:00 10/23/23 08:33 Temperature 36.7 C Pulse Rate 67 71 Respiratory Rate 16 Blood Pressure 138/93 H Pulse Oximetry 100 99 Oxygen Delivery Room Air Fraction of Inspired Oxygen 21 Exam Const: General: comfortable Eyes: EOM: EOMs intact bilaterally Neck: Neck: supple and no JVD Resp: Effort & Inspection: normal respiratory effort Cardio: Rate: regular rate Results Labs and Meds 10/23/23 02:34 10/22/23 20:18 Lab results: Cardiac Enzymes 10/22/23 10/22/23 10/23/23 Range/Units 20:18 23:17 02:39 AST 28 (17-59) U/L Troponin I 0.322 H* 0.334 H* 0.401 H*
--- NOTE | 2023-10-23 09:28 | WPDMODSED ---
Moderate Sedation Note-Pt Data Patient Data Diagnosis: NSTEMI Present Complaint: Chest pain Procedure to be performed/Plan: [facility] Allergies Allergy/AdvReac Type Severity Reaction Status Date / Time No Known Allergies Allergy Verified 10/05/22 23:22 Home Medications Medication Instructions Recorded Confirmed Type amlodipine 10 mg tablet 10 mg PO DAILY 05/04/20 10/22/23 History aspirin 81 mg tablet,delayed 81 mg PO DAILY 05/04/20 10/22/23 History release metoprolol tartrate 100 mg tablet 100 mg PO BID 05/04/20 10/22/23 History lisinopril 30 mg tablet 30 mg PO DAILY 10/22/23 10/22/23 History Current Medications: Active Medications Amlodipine Besylate (Amlodipine Besylate 10 Mg Tablet) 10 mg PO DAILY [facility] Aspirin (Aspirin 81 Mg Enteric Tablet) 81 mg PO DAILY [facility] Atorvastatin Calcium (Atorvastatin 40 Mg Tablet) 80 mg PO DAILY [facility] Heparin Sodium (Porcine) (Heparin Sodium 5,000 Units/Ml Vial) 4,000 units IV PUSH PRN PRN PRN Reason: aPTT less than 55 seconds Heparin Sodium (Porcine) (Heparin Sodium 5,000 Units/Ml Vial) 3,500 units IV PUSH PRN PRN PRN Reason: aPTT 55 - 70 seconds Last Admin: 10/23/23 04:07 Dose: 3,500 units Heparin Sodium/Dextrose (Heparin Sodium/D5w 100 Units/Ml) 25,000 units in 250 mls @ 12 mls/hr IV CONT .[id number] [facility]; Protocol Last Titration: 10/23/23 04:07 Dose: 1,200 units/hr, 12 mls/hr Lisinopril (Lisinopril 10 Mg Tablet) 30 mg PO DAILY [facility] Metoprolol Tartrate (Metoprolol Tartrate 50 Mg Tab) 100 mg PO Q12HR [facility] Perflutren Lipid Microsphere (Perflutren Lipid Microspheres 1.5 Ml Vial Diluted To 10 Ml Total Volume) 0 ml IV PUSH ONCE PRN; Protocol PRN Reason: adequate visualization Stop: 10/26/23 05:32 Sedation/Anesthesia: No previous sedation/anesthesia problems (including family history). [facility] Past Medical History Medical History Hypertension Migraines Surgical History Surgical History No history of previous surgery Family History Family History Father Hypertension Acute myocardial infarction Social History Social History Smoking status: Never smoker Alcohol intake: never Substance use: current Substance use type: marijuana Last use: 10/22/23 Do You Feel Safe in your Home?: Yes Lack of Transportation: No Lack of Food: Never True Current Housing: I Have Housing Concerned About Future Housing: No Difficulty Paying Gas/Electric Bills: No Difficulty Paying for Meds: No Currently Unemployed: YES Education: High School Diploma/GED Difficulty w/ Childcare or Family Care: No Spiritual care concerns: No Mod Sed Physical Exam Physical Exam Pre Procedural Exam: Normal: Appearance, Eyes, Lungs and Heart Rhythm Hours since solid foods: 12 Hours since liquid intake: 8 Mallampati Classification: class III Internal Medicine - PN: Obj Da Vital Signs Vital Signs: Vital Signs - 24 hr 10/22/23 20:19 10/22/23 21:05 10/22/23 21:11 Temperature 36.7 C Pulse Rate 80 73 Respiratory Rate 16 20 Blood Pressure 136/94 H 134/94 H Pulse Oximetry 100 98 99 Oxygen Delivery Room Air Fraction of Inspired Oxygen 10/22/23 21:47 10/22/23 22:01 10/22/23 23:25 Temperature 36.6 C Pulse Rate 70 67 68 Respiratory Rate 12 15 18 Blood Pressure 121/85 112/63 152/95 H Pulse Oximetry 99 99 95 Oxygen Delivery Fraction of Inspired Oxygen 10/22/23 23:30 10/23/23 00:00 10/23/23 02:00 Temperature Pulse Rate 68 63 74 Respiratory Rate 18 Blood Pressure Pulse Oximetry 95 Oxygen Delivery Room Air Fraction of Inspired Oxygen 10/23/23 03:23 10/23/23 04:00 10/23/23 04:00 Temperature 36.6 C Pulse Rate 64 64 64 Respiratory Rate 18 18 Blood Pressure 139/91 H Pulse Oximetry 99 99 Oxygen Delivery Room Air [facility]
--- NOTE | 2023-10-23 09:29 | WPDCARDPROC ---
Cardiac Cath Procedure Note Date of procedure:: 10/23/23 Performing physician:: CATHETERIZATION LABORATORY REPORT Procedure Date: 10/23/2023 Referring Physician: Dr. Vang Anesthesia: Versed and Fentanyl were ordered and given in my presence at , procedure ended at . Supervision of nurse monitored moderate sedation with 2mg Versed and 100mcg Fentanyl was provided for minutes. Pre-op Diagnosis: NSTEMI Post-op Diagnosis: NSTEMI Procedure(s): Left heart catheterization with coronary angiography Percutaneous Coronary Intervention IVUS Access Site: Right radial artery Brief History and Clinical Indications: 42 yo m with HTN and family history of CAD presented with chest pain whose clinical presentation is consistent with NSTEMI here for LHC with PCI All risks, benefits and alternatives to left heart catheterization with or without percutaneous coronary intervention was discussed at length with the patient. Risk of complications including but not limited to bleeding, infection, arrhythmia, stroke, worsening kidney function, blood loss, groin hematoma, limb loss, emergency coronary artery bypass grafting, and even were discussed with the patient and all questions were answered. The patient understood and wished to proceed. Time out called, patient name, date of , medical record number, allergies, procedure performed, identify Economic Analysis Director, patient and staff member concurred with accurate data, procedure carried on. Findings: LEFT HEART CATHETERIZATION FINDINGS: 1. Left main: The left main coronary artery has luminal irregularities. 2. Left anterior descending: The LAD is large and in its proximal body, there is mild disease of 20-30%. The mid vessel has angiographic evidence of thrombus and 70-80% stenosis. The diagonal branches have mild luminal irregularities without any significant obstructive angiographic disease. 3. Left circumflex: The left circumflex artery is a moderate caliber and nondominant vessel. In the ostium of the 2nd OM branch, there is 80-90% stenosis. This OM2 branch covers a rather small territory. The OM1 branch has luminal irregularities. 4. Right coronary artery: The RCA is a large dominant vessel with diffuse 20-30% disease. The rPL branches have mild luminal irregularities. The rPDA has mild proximal disease. 5. Left ventricle: A. End-diastolic pressure 12 mmHg. B. LV gram deferred. C. No significant gradient across aortic valve on catheter pullback. Description of Procedure: Informed consent signed and placed in the chart. Patient transferred to geophysical laboratory chief room. Prepped and draped in usual sterile fashion. 2% lidocaine injected subcutaneously in right wrist area. 22-gauge venipuncture catheter used to access the right radial artery with the Seldinger technique. 6-FR slender sheath placed in right radial artery. Radial cocktail consisting of nitroglycerin 100mcg, verapamil 2.5mg was given; patient was already on heparin drip. A 5Fr TIG diagnostic catheter was used to engaged to right coronary artery and the left main coronary artery. Multiple orthogonal angiogram obtained and reviewed. A 5Fr Pigtail diagnostic catheter crossed aortic valve to obtain LVEDP, LV angiogram deferred. Procedure Description for PCI: Heparin was used for anticoagulation (ACT maintained above 250) Patient loaded with heparin at 70 units/kg. A 6Fr CLS guide catheter was used to engage the LMCA. A 0.014 Samurai coronary wire was passed in to the apical LAD The lesion was pre-dilated with a 3.0mm x 20mm balloon inflated to 10 FATIMAH A 3.5mm x 38mm [place] JETT was successfully deployed into mid LAD with excellent angiographic results Intracoronary NTG was administered for distal spasm with resolution of spasm. Coronary wire and guide-catheter were removed under fluoroscopy Pre-procedure - MAYA 3 flow Post-procedure - MAYA 3 flow No angiographic complications identified. Hemostasis was achieve
[2023-10-23] MEDS: METOPROLOL TARTRATE 50 MG TAB 100 MG PO ×2 (09:32→20:52)
[2023-10-23] MEDS: ATORVASTATIN 40 MG TABLET 80 MG PO (09:32)
[2023-10-23] MEDS: ASPIRIN 81 MG ENTERIC TABLET PO (09:32)
[2023-10-23] MEDS: lisinopriL 10 MG TABLET 30 MG PO (09:33)
[2023-10-23] MEDS: amLODIPine BESYLATE 10 MG TABLET PO (09:33)
--- NOTE | 2023-10-23 10:50 | PC.NURSE ---
This patient, Femi Squires, was transferred to factory laborer on 10/23/23 at 1040.
[2023-10-23 12:09] LABS: Activated Clotting Time 208 SEC (74-137)
[2023-10-23 12:09] LABS: Activated Clotting Time 122 SEC (74-137)
[2023-10-23] MEDS: PERFLUTREN LIPID MICROSPHERES 1.5 ML VIAL DILUTED TO 10 ML TOTAL VOLUME IV PUSH (13:24)
--- NOTE | 2023-10-23 16:07 | IVDEFINITY ---
Prior to administration of IV Definity the patient was educated on the risks and benefits of the imaging enhancing agent including potential adverse side effects. The patient verbalized understanding. Allergies were verified. No exclusion criteria were identified and at least one of the following inclusion criteria were met: 1) physician request, 2) patient technically difficult to image (per the [place] [employer]ocardi[employer] guidelines of two or more segments not discernable within the apical view), or 3) questionable left ventricular function. ?
[2023-10-23] MEDS: SODIUM CHLORIDE 0.9% IV 1,000 ML 125 ML IV CONT (16:17)
--- NOTE | 2023-10-23 16:47 | PC.NURSE ---
Returned from gold leaf laborer. Right radial pulse strong. Tegaderm intact with no hematoma.
--- NOTE | 2023-10-23 16:54 | PM.IMPN ---
Progress Note: A&P Assessment and Plan (1) Non-ST elevation [place] (NSTEMI): Code(s): I21.4 - Non-ST elevation (NSTEMI) myocardial infarction Status: Acute (2) Hypertension: Code(s): I10 - Essential (primary) hypertension Status: Acute Plan Continue heparin infusion, aspirin, Lipitor metoprolol. For cardiac catheterization today. Consider lisinopril and amlodipine. Titrated home medications with clinical course. Cardiology consult today. DVT prophylaxis on heparin infusion. ---- Subjective Date/time seen: 10/23/23 16:54 Interval history: Comfortable at bedside, awaiting cardiac catheterization at the time of this encounter. Review of Systems Review of Systems: All systems reviewed & are unremarkable except as noted in HPI and below ( Subjective) Exam Narrative: General: alert and comfortable Eyes: EOMI, PERRLA ENNT External ears normal, Neck is supple, no masses, Respiratory systems: Clear to auscultation Cardiovascular S1, S2, normal rhythm, no murmur, rub, or gallop; no thrill or palpable murmurs on palpation. Gastrointestinal: soft, non-tender, and non-distended abdomen with no masses; BS present Skin: no rash, lesions, ulcerations, subcutaneous nodules or induration Musculoskeletal: no abnormality and no tenderness, normal ROM Neurologic: Alert and oriented x3, non focal Mental Status Exam: normal affect Objective Data Vital Signs Vital Signs: Vital Signs - 24 hr 10/22/23 20:19 10/22/23 21:05 10/22/23 21:11 Temperature 98.0 F Pulse Rate 80 73 Respiratory Rate 16 20 Blood Pressure 136/94 H 134/94 H Pulse Oximetry 100 98 99 Oxygen Delivery Room Air Fraction of Inspired Oxygen 10/22/23 21:47 10/22/23 22:01 10/22/23 23:25 Temperature 97.9 F Pulse Rate 70 67 68 Respiratory Rate 12 15 18 Blood Pressure 121/85 112/63 152/95 H Pulse Oximetry 99 99 95 Oxygen Delivery Fraction of Inspired Oxygen 10/22/23 23:30 10/23/23 00:00 10/23/23 02:00 Temperature Pulse Rate 68 63 74 Respiratory Rate 18 Blood Pressure Pulse Oximetry 95 Oxygen Delivery Room Air Fraction of Inspired Oxygen 10/23/23 03:23 10/23/23 04:00 10/23/23 04:00 Temperature 97.9 F Pulse Rate 64 64 64 Respiratory Rate 18 18 Blood Pressure 139/91 H Pulse Oximetry 99 99 Oxygen Delivery Room Air Fraction of Inspired Oxygen 10/23/23 06:00 10/23/23 08:00 10/23/23 08:33 Temperature 98.1 F Pulse Rate 67 71 Respiratory Rate 16 Blood Pressure 138/93 H Pulse Oximetry 100 99 Oxygen Delivery Room Air Fraction of Inspired Oxygen 21 10/23/23 09:32 10/23/23 08:00 10/23/23 10:00 Temperature Pulse Rate 68 67 63 Respiratory Rate Blood Pressure Pulse Oximetry Oxygen Delivery Fraction of Inspired Oxygen 10/23/23 08:00 10/23/23 12:30 10/23/23 12:45 Temperature Pulse Rate 57 L 53 L Respiratory Rate 16 14 Blood Pressure 156/109 H 152/116 H Pulse Oximetry 99 100 100 Oxygen Delivery Room Air Room Air Room Air Fraction of Inspired Oxygen 10/23/23 13:00 10/23/23 13:15 10/23/23 13:45 Temperature Pulse Rate 64 66 86 Respiratory Rate 16 12 18 Blood Pressure 152/107 H 152/113 H 142/114 H Pulse Oximetry 100 100 100 Oxygen Delivery Room Air Room Air Room Air Fraction of Inspired Oxygen 10/23/23 14:00 10/23/23 14:15 10/23/23 14:30 Temperature Pulse Rate 71 67 70 Respiratory Rate 16 16 16 Blood Pressure 132/98 H 139/107 H 137/96 H Pulse Oximetry 100 100 100 Oxygen Delivery Room Air Room Air Room Air Fraction of Inspired Oxygen 10/23/23 15:00 10/23/23 13:30 10/23/23 14:45 Temperature Pulse Rate 72 79 77 Respiratory Rate 22 H 14 20 Blood Pressure 132/92 H 150/106 H 138/99 H Pulse Oximetry 99 100 99 Oxygen Delivery Room Air Room Air Room Air Fraction of Inspired Oxygen 10/23/23 15:15 10/23/23 15:30 10/23/23 15:45 Temperature Pulse Rate 73 72 73 Respiratory
[2023-10-23] MEDS: TICAGRELOR 90 MG TABLET PO (20:52)
[2023-10-24] VITALS (12 sets, daily range): BP systolic 127–145; BP diastolic 81–97; PULSE 63–81; RESP 16; TEMP 36.2–36.6; O2SAT 96–100
[2023-10-24 05:36] LABS: Basophils Percent Auto 0.4 % (0.2-1.2); Eosinophils Absolute Auto 0.2 K/mm3 (0-0.3); Eosinophils Percent Auto 2.3 % (0-4.4); Hematocrit 43.9 % (42.0-52.0); Hemoglobin 15.8 g/dL (14.0-18.0); Immature Granulocyte Absolute 0.03 K/mm3 (0.00-0.031); Immature Granulocyte Percent A 0.3 % (0-0.5); Lymphocytes Absolute Auto 1.44 K/mm3 (0.9-3.2); Lymphocytes Percent Auto 15.7 % (18.3-44.2); Mean Corpuscular Volume 86.2 fl (80-100); Mean Platelet Volume 8.9 fl (7.4-10.4); Monocytes Absolute Auto 0.9 K/mm3 (0.1-0.6); Monocytes Percent Auto 9.4 % (2.6-8.5); Neutrophils Absolute Auto 6.6 K/mm3 (1.3-6.7); Neutrophils Percent Auto 71.9 % (45.5-73.1); Platelet Count Result 207 k/mm3 (150-375); Red Blood Count 5.09 M/mm3 (4.6-6.20); Red Cell Distribution Width 11.1 % (11.5-14.5); White Blood Count 9.2 K/mm3 (4.5-10.0)
[2023-10-24 05:48] LABS: Alanine Aminotransferase 21 U/L (6-50); Albumin Level 4.1 g/dL (3.5-5.1); Alkaline Phosphatase 59 U/L (38-126); Anion Gap 9 mmol/L (4-12); Aspartate Amino Transferase 29 U/L (17-59); Bilirubin,Total 0.8 mg/dL (0.2-1.3); Blood Urea Nitrogen 13 mg/dL (9-20); Calcium 9.2 mg/dL (8.4-10.2); Carbon Dioxide 25 mmol/L (22-30); Chloride 102 mmol/L (98-107); Estimated CRCL calculation 91 ml/min; Estimated Glomerular Filt Rate > 60; Glucose 98 mg/dL (65-110); Magnesium 1.9 mg/dL (1.6-2.3); Potassium 3.9 mmol/L (3.4-5.0); Sodium 136 mmol/L (137-145)
--- NOTE | 2023-10-24 08:06 | PM.PNCARD ---
Progress Note: A&P Assessment and Plan (1) Non-ST elevation [place] (NSTEMI): Code(s): I21.4 - Non-ST elevation (NSTEMI) myocardial infarction Status: Acute Assessment and Plan: S/P PCI to LAD for thrombus. Has 80% prox OM2 stenosis. If has cp, consider PCI OM2. On dual antiplatelets and instructed not to stop them, on atorvastatin, Metoprolol, lisinopril. May d/c home from cardiology standpoint and f/u with me in 1 week. Will order phase II cardiac rehab then. (2) Hypertension: Code(s): I10 - Essential (primary) hypertension Status: Acute Assessment and Plan: Stable. Subjective Date/time seen: 10/24/23 08:06 Interval history: Denies any chest pain or sob. Right wrist access site is without hematoma, bleeding or bruit. Exam Const: General: cooperative, healthy appearing and comfortable Orientation/consciousness: oriented to person, oriented to place and oriented to time Resp: Auscultation: clear to auscultation bilaterally, no crackles, no rales, no rhonchi and no wheezes Cardio: Rate: regular rate Rhythm: regular rhythm Heart sounds: no murmurs Peripheral pulses: dorsalis pedis present Neuro: General: oriented to person, oriented to place and oriented to time Extrem: Right lower extremity: no edema Left lower extremity: no edema Objective Data Vital Signs Vital Signs: Vital Signs - 24 hr 10/23/23 08:33 10/23/23 09:32 10/23/23 10:00 Temperature Pulse Rate 68 63 Respiratory Rate Blood Pressure Pulse Oximetry 99 Oxygen Delivery Room Air Fraction of Inspired Oxygen 21 10/23/23 12:30 10/23/23 12:45 10/23/23 13:00 Temperature Pulse Rate 57 L 53 L 64 Respiratory Rate 16 14 16 Blood Pressure 156/109 H 152/116 H 152/107 H Pulse Oximetry 100 100 100 Oxygen Delivery Room Air Room Air Room Air Fraction of Inspired Oxygen 10/23/23 13:15 10/23/23 13:45 10/23/23 14:00 Temperature Pulse Rate 66 86 71 Respiratory Rate 12 18 16 Blood Pressure 152/113 H 142/114 H 132/98 H Pulse Oximetry 100 100 100 Oxygen Delivery Room Air Room Air Room Air Fraction of Inspired Oxygen 10/23/23 14:15 10/23/23 14:30 10/23/23 15:00 Temperature Pulse Rate 67 70 72 Respiratory Rate 16 16 22 H Blood Pressure 139/107 H 137/96 H 132/92 H Pulse Oximetry 100 100 99 Oxygen Delivery Room Air Room Air Room Air Fraction of Inspired Oxygen 10/23/23 13:30 10/23/23 14:45 10/23/23 15:15 Temperature Pulse Rate 79 77 73 Respiratory Rate 14 20 14 Blood Pressure 150/106 H 138/99 H 143/101 H Pulse Oximetry 100 99 99 Oxygen Delivery Room Air Room Air Room Air Fraction of Inspired Oxygen 10/23/23 15:30 10/23/23 15:45 10/23/23 16:00 Temperature Pulse Rate 72 73 70 Respiratory Rate 16 18 17 Blood Pressure 151/98 H 146/98 H 144/103 H Pulse Oximetry 100 99 99 Oxygen Delivery Room Air Room Air Room Air Fraction of Inspired Oxygen 10/23/23 16:15 10/23/23 16:30 10/23/23 18:00 Temperature Pulse Rate 66 63 71 Respiratory Rate 18 17 Blood Pressure 145/94 H 141/100 H Pulse Oximetry 98 99 Oxygen Delivery Room Air Room Air Fraction of Inspired Oxygen 10/23/23 16:00 10/23/23 18:30 10/23/23 20:20 Temperature 97.3 F L Pulse Rate 67 67 Respiratory Rate 16 16 Blood Pressure 136/87 Pulse Oximetry 99 100 100 Oxygen Delivery Room Air Room Air Fraction of Inspired Oxygen 10/23/23 20:52 10/23/23 20:52 10/23/23 20:00 Temperature 98.3 F Pulse Rate 72 71 71 Respiratory Rate 16 Blood Pressure 130/94 H Pulse Oximetry 100 Oxygen Delivery Fraction of Inspired Oxygen 10/23/23 22:00 10/24/23 00:08 10/24/23 00:31 Temperature 97.8 F Pulse Rate 63 63 77 Respiratory Rate 16 16 Blood Pressure 127/89 Pulse Oximetry 100 100 Oxygen Delivery Room Air Fraction of Inspired Oxygen 10/24/23 00:00 10/24/23 02:00 10/24/23 03:51 Temperature 97.9 F Pulse Rate 67 63 66 Respiratory Rate 16 Bloo
[2023-10-24] MEDS: ATORVASTATIN 40 MG TABLET 80 MG PO (08:17)
[2023-10-24] MEDS: amLODIPine BESYLATE 10 MG TABLET PO (08:17)
[2023-10-24] MEDS: ASPIRIN 81 MG ENTERIC TABLET PO (08:17)
[2023-10-24] MEDS: METOPROLOL TARTRATE 50 MG TAB 100 MG PO (08:17)
[2023-10-24] MEDS: lisinopriL 10 MG TABLET 30 MG PO (08:17)
[2023-10-24] MEDS: TICAGRELOR 90 MG TABLET PO (08:17)
--- NOTE | 2023-10-24 13:44 | PM.DS ---
DS: Admitting Diagnosis Discharge Date 10/24/23 Admitting Diagnosis Chest pain DS: Summary Hospital Course Hospital Course: Mr. Squires is a 42-year-old male with a past medical history hypertension, marijuana use for anxiety per the patient's report, who presents with chest pain lasting 15 minutes prior to admission. He reports it as feeling tight and on the right side of his chest, worse when he lays down on his right side. He had this pain a few days prior which was transient as well. Was not worse on exertion. Denies shortness of breath, denies cough. his father of a heart attack in his 60s, grandfather had heart disease as well. Patient quit tobacco and alcohol use in 2014. Does not use illicit drugs. He lives with his . ER vitals included temperature 97.9? F, pulse rate 68, respiratory rate 18, 95% O2 saturation on room air, blood pressure 152/95. lipid panel obtained in the ER. Troponin 0.32 to than 0.334. Repeat pending for 2:00 a.m.. EKG did not demonstrate ST changes but T-wave inversions in lead V4 and V5. Chest x-ray did not reveal any Acute process. He was given aspirin 324 mg p.o. x1, started on heparin GTT with bolus. Cardiolog Dr. Vang Contacted from ER. Patient underwent cardiac cath with PCI to LAD. Patient is asymptomatic this morning. He is discharged on ASpirin, Birlinta, Metorprolol and Lisinopril ECHO showed normal EF. Patient will follow up with cardiology as instructed F/u with PCP in 3-5 days Time Spent with Patient Time attestation: Total time spent providing and/or coordinating discharge services: DS: Data Data Completed and Pending Labs on day of discharge: Labs from last 24 hours 10/24/23 04:49 WBC 9.2 RBC 5.09 Hgb 15.8 Hct 43.9 MCV 86.2 MCH 31.0 MCHC 36.0 RDW 11.1 L Plt Count 207 MPV 8.9 Immature Gran % (Auto) 0.3 Neut % (Auto) 71.9 Lymph % (Auto) 15.7 L Jerome % (Auto) 9.4 H Eos % (Auto) 2.3 Baso % (Auto) 0.4 Lymph # (Auto) 1.44 Jerome # (Auto) 0.9 H Eos # (Auto) 0.2 Baso # (Auto) 0.0 Abs Immat Gran (auto) 0.03 Absolute Neuts (auto) 6.6 Absolute Nucleated RBC 0.000 Nucleated RBC % 0.0 Sodium 136 L Potassium 3.9 Chloride 102 Carbon Dioxide 25 Anion Gap 9 BUN 13 Creatinine 1.00 Estim Creat Clear Calc 91 Estimated GFR > 60 Glucose 98 Calcium 9.2 Magnesium 1.9 Total Bilirubin 0.8 AST 29 ALT 21 Alkaline Phosphatase 59 Total Protein 7.0 Albumin 4.1 Discharge Plan Discharge Attending physician on discharge: Alie Zavala Consulting providers: Mahendra Vang; Deondre Lo Discharging Clinician: Alie Zavala Anticipated Discharge Date/Time: 10/24/23 13:39 Patient Disposition: Home, Self-Care Activity: as tolerated Diet: as tolerated Discharge Instructions: [facility] [address] [place] [id number] DISCHARGE INSTRUCTIONS - POST RADIAL CATH Activity 1. No driving for 24 hours. 2. No lifting more than 5 lb with affected arm for 1 week. 3. May shower ( tomorrow) but no excessive soaking of affected hand/wrist (such as washing dishes), swimming pool or hot tub for 5 days. Wound Care 1. May remove arm board in the morning. 2. May remove gauze dressing in the morning and put Band-Aid over affected radial site. Keep site covered for 3 days. 3. Observe for redness, drainage, swelling or bleeding. Medications DO NOT STOP YOUR MEDICATIONS ONLY YOUR HOT ROLLER CAN ST
== END 2023-10-24 15:38 | disposition home or self-care (01) ==
LOC: ANHED 22:18 → ANHIMU 22:52
PROVIDERS: Emergency Medicine; Internal Medicine; Physician Assistant; Admitting Provider General Practice; Emergency Provider Physician Assistant; PCP Emergency Medicine; Visit Provider Internal Medicine
PROC: 4A023N7 Measurement of Cardiac Sampling and Pressure, Left Heart, Percutaneous Approach (ICD-10-PCS; CPT 93452; principal; 2023-10-23 11:30)
DX: I21.4 Non-ST elevation (NSTEMI) myocardial infarction (principal); I10 Essential (primary) hypertension; Z79.82 Long term (current) use of aspirin; G43.909 Migraine, unspecified, not intractable, without status migrainosus; Z87.891 Personal history of nicotine dependence; F41.9 Anxiety disorder, unspecified; F12.90 Cannabis use, unspecified, uncomplicated
CPT/HCPCS: 36415; 71046; 80053; 80061; 83690; 83735; 84484; 85025; 85380; 85610; 85730; 92978; 93005; 93458; 96365; 99291; A9270; C1725; C1753; C1769; C1874; C1887; C1894; C8929; C9600; G0378; G0379; J1644; J2250; J2305; J3010; J7030; J7040; Q9957